=== PATIENT | female | born 1975 | race Hispanic/Latino ===

== ENCOUNTER 2017-10-13 08:05 | Emergency (ER) | payer MEDICARE, OTHER | END 2017-10-13 08:55 | disposition home or self-care (01) | LOC: NAV ERS 08:05 | DX: R10.32 Left lower quadrant pain (principal); F31.9 Bipolar disorder, unspecified; F17.210 Nicotine dependence, cigarettes, uncomplicated | CPT/HCPCS: 99283 ==

== ENCOUNTER 2018-07-31 08:00 | Emergency (ER) | payer MEDICARE, OTHER ==
[2018-07-31] MEDS ORDERED: Acetaminophen/Codeine 30-300mg Tablet ONE (09:13)
--- NOTE | 2018-07-31 10:22 | RAD ---
RIGHT KNEE 4 VIEWS: Date: 07/31/18 PROVIDED CLINICAL HISTORY: Right knee pain status post injury. FINDINGS: There is no evidence for fracture or other acute osseous abnormality. If there is persistent clinical concern, conservative management and follow-up imaging are advised. IMPRESSION: As above. POS: [id number]
== END 2018-07-31 09:15 | disposition home or self-care (01) ==
LOC: NAV ERS 08:00
DX: S83.411A Sprain of medial collateral ligament of right knee, initial encounter (principal); F41.9 Anxiety disorder, unspecified; F31.9 Bipolar disorder, unspecified; F20.9 Schizophrenia, unspecified; F17.210 Nicotine dependence, cigarettes, uncomplicated; Z79.899 Other long term (current) drug therapy; X50.1XXA Overexertion from prolonged static or awkward postures, initial encounter

== ENCOUNTER 2019-06-28 13:30 | Emergency (ER) | payer MEDICARE, OTHER ==
[2019-06-28 14:30] LABS: #Eosinphils 0.1 thou/uL (0.0-0.7); #Lymphocytes 1.4 thou/uL (1.20-3.40); #Monocytes 0.6 thou/uL (0.11-0.59); #Neutrophils 6.3 thou/uL (1.40-6.50); %Basophils 0.4 % (0.0-1.0); %Monocytes 6.7 % (0.0-10.0); %Neutrophils 74.8 % (42.0-75.0); Hemoglobin 11.3 g/dL (12.0-16.0); Mean Corpuscular HGB CONC 33.7 g/dL (32.0-36.0); Mean Corpuscular Hemoglobin 29.3 pg (27.0-31.0); Mean Corpuscular Volume 86.9 fL (78.0-98.0); Mean Platelet Volume 10.2 fL (7.4-10.4); Platelet Count 220 thou/uL (130-400); RBC Distribution Width 11.8 % (11.5-14.5); Red Blood Cell (RBC) Count 3.85 mill/uL (4.20-5.40); White Blood Cell (WBC) Count 8.4 thou/uL (4.8-10.8)
[2019-06-28 14:31] LABS: Bilirubin Negative (Negative); Blood, Urine Negative (Negative); Clarity Clear (Clear); Glucose, Urine (Dipstick) Negative (Negative); Leukocyte Negative (Negative); Nitrite Negative (Negative); Protein, Urine (Dipstick) Negative (Neg-Trace); Urobilinogen 0.2 mg/dL (Less than 2)
[2019-06-28 14:54] LABS: Anion Gap 16 mmol/L (10-20); BUN (Urea Nitrogen) 10 mg/dL (7.0-18.7); Calc. Creatinine Clearance 0 mL/min (70-130); Calcium 9.8 mg/dL (7.8-10.44); Carbon Dioxide 22 mmol/L (22-29); Chloride 106 mmol/L (98-107); Estimated GFR-MDRD 76; Glucose 88 mg/dL (70-105); Potassium 3.7 mmol/L (3.5-5.1); Sodium 140 mmol/L (136-145)
[2019-06-28 15:57] LABS: Wet Prep Trichomonas Trichomonas Absent (None Seen)
[2019-06-28 15:58] LABS: Wet Prep Clue Cells Clue Cells Absent (None Seen); Wet Prep Spermatozoa 2nd Revie Agree with result (None Seen)
[2019-06-28 20:11] LABS: Chlam.trachomatis by PCR,Urine Not Detected (NotDetected)
== END 2019-06-28 16:19 | disposition home or self-care (01) ==
LOC: NAV ERS 13:30
DX: O20.0 Threatened abortion (principal); O99.342 Other mental disorders complicating pregnancy, second trimester; F41.9 Anxiety disorder, unspecified; F31.9 Bipolar disorder, unspecified; F20.9 Schizophrenia, unspecified; Z87.891 Personal history of nicotine dependence; Z79.899 Other long term (current) drug therapy; Z3A.18 18 weeks gestation of pregnancy
CPT/HCPCS: 80048; 81003; 84702; 85025; 87210; 87480; 87491; 87510; 87591; 87660

== ENCOUNTER 2019-09-26 12:44 | Emergency (ER) | payer MEDICARE, OTHER | END 2019-09-26 14:40 | disposition short-term general hospital (02) | LOC: NAV ERS 12:44 | DX: O36.8130 Decreased fetal movements, third trimester, not applicable or unspecified (principal); O99.343 Other mental disorders complicating pregnancy, third trimester; F41.9 Anxiety disorder, unspecified; F31.9 Bipolar disorder, unspecified; F20.9 Schizophrenia, unspecified; Z3A.30 30 weeks gestation of pregnancy; Z87.891 Personal history of nicotine dependence; Z79.82 Long term (current) use of aspirin | CPT/HCPCS: 99284 ==

== ENCOUNTER 2021-05-29 13:08 | Emergency (ER) | payer MEDICARE, OTHER | END 2021-05-29 14:40 | disposition home or self-care (01) | LOC: NAV ERS 13:08 | DX: S83.91XA Sprain of unspecified site of right knee, initial encounter (principal); S80.02XA Contusion of left knee, initial encounter; F17.210 Nicotine dependence, cigarettes, uncomplicated; W19.XXXA Unspecified fall, initial encounter ==

== ENCOUNTER 2022-12-08 15:17 | Outpatient (CLI) | payer MEDICARE, MEDICAID | END 2022-12-08 15:18 | disposition home or self-care (01) | LOC: NAV RAD 15:17 | PROVIDERS: ATTEND Family Medicine | DX: K59.00 Constipation, unspecified (principal); R10.30 Lower abdominal pain, unspecified | CPT/HCPCS: 74019 ==

== ENCOUNTER 2023-07-08 15:26 | Outpatient (CLI) | payer MEDICARE, MEDICAID | END 2023-07-08 15:27 | disposition home or self-care (01) | LOC: NAV RAD 15:26 | PROVIDERS: ATTEND Family Medicine | DX: T19.2XXA Foreign body in vulva and vagina, initial encounter (principal) | CPT/HCPCS: 74018 ==

== ENCOUNTER 2023-07-14 18:52 | Emergency (ER) | payer MEDICARE, OTHER | END 2023-07-14 20:35 | disposition home or self-care (01) | LOC: NAV ERS 18:52 | DX: S01.81XD Laceration without foreign body of other part of head, subsequent encounter (principal); F17.210 Nicotine dependence, cigarettes, uncomplicated; W18.30XD Fall on same level, unspecified, subsequent encounter ==

== ENCOUNTER 2025-05-22 16:38 | Emergency (ER) | payer OTHER ==
[2025-05-22 16:59] LABS: Glucose, Urine (Dipstick) Negative (Negative); Leukocyte Trace (Negative); Protein, Urine (Dipstick) 100 mg/dL (Neg-Trace); Specific Gravity, Urine 1.015 (1.005-1.030)
[2025-05-22 17:00] LABS: Pregnancy Test - Urine (BHCG) Negative (Negative); Pregu Control Background? CLEAR/WHITE (CLR/WHITE); Pregu Control Bar Appear? YES (CONTROL BAR)
[2025-05-22 17:10] LABS: Bacteria/HPF 2+ HPF (None Seen); CAUTI Indications for Culture Pelvic or flank pain; Mucous/LPF 1+ LPF (<2+); RBC/HPF 21-50 HPF (0-3); WBC/HPF 21-50 HPF (0-3)
[2025-05-22 17:11] LABS: Urine Culture Reflex Yes Yes
[2025-05-22] MEDS ORDERED: Sulfameth/Trimethoprim DS 800-160mg TAB ONE (17:16)
== END 2025-05-22 17:21 | disposition home or self-care (01) ==
LOC: NAV ERS 16:38
DX: N39.0 Urinary tract infection, site not specified (principal); N93.9 Abnormal uterine and vaginal bleeding, unspecified; F17.210 Nicotine dependence, cigarettes, uncomplicated
CPT/HCPCS: 81001; 81025; 87086; 99284

== ENCOUNTER 2025-06-02 09:00 | Emergency (ER) | payer OTHER ==
[2025-06-02 09:30] LABS: CAUTI Indications for Culture Pelvic or flank pain; Glucose, Urine (Dipstick) Negative (Negative); Leukocyte Negative (Negative); Protein, Urine (Dipstick) Negative (Neg-Trace); RBC/HPF 0-3 HPF (0-3); Specific Gravity, Urine 1.015 (1.005-1.030); WBC/HPF 0-3 HPF (0-3)
[2025-06-02 09:31] LABS: Urine Culture Reflex No No
== END 2025-06-02 10:00 | disposition home or self-care (01) ==
LOC: NAV ERS 09:00
DX: N39.0 Urinary tract infection, site not specified (principal); F17.210 Nicotine dependence, cigarettes, uncomplicated
CPT/HCPCS: 81001; 99283